=== PATIENT | female | born 1990 | race Caucasian/White ===

== ENCOUNTER 2018-03-03 00:41 | Emergency (ER) | payer BC ==
[2018-03-03] MEDS: ONDANSETRON (ODT) 4 MG TAB ODT (01:45)
== END 2018-03-03 02:20 | disposition home or self-care (01) ==
LOC: FTE 00:41
DX: F41.9 Anxiety disorder, unspecified (principal); R06.02 Shortness of breath
CPT/HCPCS: 93005; 99283-25

== ENCOUNTER 2018-08-18 05:21 | Emergency (ER) | payer BC ==
[2018-08-18] MEDS: LORAZEPAM 0.5 MG TAB PO (06:32)
== END 2018-08-18 07:14 | disposition home or self-care (01) ==
LOC: FTE 05:21
DX: R20.2 Paresthesia of skin (principal); F41.9 Anxiety disorder, unspecified; M79.602 Pain in left arm
CPT/HCPCS: 93005; 99283-25